=== PATIENT | female | born 1995 | race Caucasian/White ===

== ENCOUNTER 2016-11-02 18:47 | Emergency (ER) | payer BC ==
[~2016-11-02] VITALS: Ht 154.9 cm; Wt 55.8 kg
[~2016-11-02 18:47] MED LIST: BCPILLS PO; LACTCAP3 PO; MULT-506 PO
[2016-11-02 18:48] VITALS: BP 146/96; TEMP 37; Ht 154.9 cm; Wt 55.8 kg
[2016-11-02] MEDS ORDERED: ACETAMINOPHEN 500 MG TAB PO STA (19:09)
[2016-11-02] MEDS ORDERED: ONDANSETRON 4MG OD TAB PO ONE (19:15)
[2016-11-02] MEDS ORDERED: ONDANSETRON HOME PACK 4MG OD TAB PO ONE (19:30)
[2016-11-02 19:58] VITALS: PULSE 94; O2SAT 96
--- NOTE | 2016-11-02 20:44 | EMERGENCY ROOM VISIT NOTE ---
History Report prepared by [place]: Windy Herrera Under the Supervision of: Dr. Solo Lu M.D. First contact with patient: 19:06 Chief Complaint: HEAD INJURY (MINOR) Stated Complaint: HEADACHE, NAUSEA History of Present Illness The patient is a 20 year old female who presents to the Emergency Room with complaints of a head injury that occurred 4 days ago. The patient states that she was drinking alcohol 4 days ago and had a fall around 2300. She hit her head but did not lose consciousness. She had a minor abrasion to the left side of her head but denies any open wounds. The patient drank alcohol the following day, two days ago, and yesterday and did not notice any symptoms. Today, the patient was trying to do school work and had a constant headache. It is dull and a 4/10 in severity. She also complains of mild fuzzy vision, neck pain and nausea. She does not have a history of concussions or head injuries. She has not taken anything for her symptoms. Pt denies LOC, chest pain, breathing difficulties, vomiting, abdominal pain, back pain, extremity pain, numbness, weakness, open wounds, active bleeding, or other complaints. Source of History: patient Onset: 3 days ago Position: head Symptom Intensity: 4/10 Quality: dull Timing: constant Associated Symptoms: + nausea, + neck pain Review of Systems See HPI for pertinent positives and negatives. A total of ten systems were reviewed and were otherwise negative. Past Medical & Surgical Medical Problems: (1) Hemorrhagic cystitis (2) Pyelonephritis (3) UTI (urinary tract infection) Family History Gallbladder disease Hypertension Kidney disease Kidney stones Social History Smoking Status: Never Smoker Alcohol Use: occasionally Marital Status: single Housing Status: lives with roommate Occupation Status: [employer] student Current/Historical Medications No Active Prescriptions or Reported Meds Allergies Coded Allergies: No Known Allergies (Unverified , 05/16/15) Physical Exam Vital Signs Date Time Temp Pulse Resp B/P Pulse Ox O2 Delivery O2 Flow Rate FiO2 11/02/16 19:58 94 18 96 Room Air 11/02/16 18:48 37.0 103 18 146/96 96 Room Air Physical Exam GENERAL: Awake, alert, well appearing, no distress HENT: Normocephalic, atraumatic. TM's normal. Oropharynx unremarkable. EYES: PERRL. EOMI. Normal conjunctiva. Sclera non-icteric. NECK: Supple. No nuchal rigidity. FROM. No JVD or bruit. RESPIRATORY: CTA CARDIAC: RRR. No murmur. ABDOMEN: Soft, non distended. No tenderness to palpation. No rebound or guarding. No masses. RECTAL: Deferred. MUSCULOSKELETAL: Unremarkable. No edema. No discoloration. Gross motor strength symmetric. NEURO: Cranial nerves 2-12 grossly intact. Normal sensorium. No sensory or motor deficits noted. Speech normal. No pronator drift. Negative rhomberg. SKIN: No rash or jaundice noted. LYMPH: No adenopathy. Medical Decision & Procedures Medications Administered Medications (Trade) Dose Ordered Sig/Teresita Route Start Time Stop Time Status Last Admin Dose Admin Ondansetron HCl (Zofran Odt) 4 mg ONE ONCE PO 11/02/16 19:15 11/02/16 19:16 DC 11/02/16 19:55 4 MG Acetaminophen (Tylenol Tab) 1,000 mg NOW STAT PO 11/02/16 19:09 11/02/16 19:11 DC 11/02/16 19:55 1,000 MG Ondansetron HCl (ZOFRAN ODT 4MG Home Pack) 1 homepack UD ONCE PO 11/02/16 19:30 11/02/16 19:31 DC 11/02/16 19:55 1 HOMEPACK ED Course 1905: The patient was evaluated in room D9. A complete history and physical exam was performed. 1908: Ordered Tylenol Tab 1000 mg PO. 1914: Ordered Zofran Odt 4 mg PO. 1919: Discussed results and discharge instructions: She verbalized understanding and agreement. The patient is ready for discharge. 1929: Ordered Ondansetron HCl 1 homepack PO. Medical Decision Triage Nursing notes reviewed and agree them. The patient's history was concerning for traumatic head injury Differential diagnosis: Etiologies such as contusion, fracture, subdural hematoma, concussion, epidural hematoma, intraparenchymal hemorrhage, as well as other traumatic pathologies were entertained. Physical examination findings: As above. ER treatment provided: P.o. Tylenol Zofran ODT 4 mg On reassessment the patient felt better. Diagnostics interpreted by me: Imaging studies: Deferred It appears the patient has a mild concussion. She is 4 days out from the injury. She also had several days of alcohol use. Clinically she looked well. No meningismus. No significant trauma. No neurologic findings. I discussed the risks and the benefits of CT scanning. Clinically the patient is doing well and does not appear to have a significant underlying injury. The patient felt comfortable with conservative observation with the understanding if the clinical picture change that imaging may be necessary at a later time. By the evaluation outlined above emergent etiologies such as fracture, subdural hematoma, epidural hematoma, intraparenchymal hemorrhage, as well as others were deemed relatively unlikely. The patient was informed about the findings as listed above. All questions were answered and she was pleased with the treatment. Return instructions were outlined and the patient was discharged in stable condition. Referral: The patient was referred back to her primary care physician for follow-up this week for a recheck of the current condition. The chart was completed utilizing [employer] Speech voice recognition software. Grammatical errors, random word insertions, pronoun errors, and incomplete sentences are an occasional consequence of this system due to software limitations, ambient noise, and hardware issues. Any formal questions or concerns about the content, text, or information contained within the body of this dictation should be directly addressed to the physician for clarification. Impression Primary Impression: Closed head injury Additional Impression: Concussion Scribe Attestation The scribe's documentation has been prepared under my direction and personally reviewed by me in its entirety. I confirm that the note above accurately reflects all work, treatment, procedures, and medical decision making performed by me. Departure Information Dispostion Home / Self-Care Prescriptions No Active Prescriptions or Reported Meds Referrals No Doctor, Assigned (PCP) Patient Instructions My [facility] Additional Instructions CONCUSSION DISCHARGE INSTRUCTIONS: What is a concussion? A concussion is a disturbance in the function of the brain caused by a direct or indirect force to the head. It results in a variety of symptoms like: headache, balance problems, nausea, vomiting, vision problems, hearing problems/ringing, drowsiness, irritability, and/or difficulty concentrating or remembering. A concussion may, or may not involve memory problems or loss of consciousness. Concussion instructions: Stop and stay away from ALL physical activity until you are symptom free from: Headaches Balance problems Feeling "dinged" Poor concentration Drowsy Fatigued Rest and avoid strenuous activities for the next few days. Get 8-10 hours of sleep per night. Limit activities that involve significant concentration and attention during this time to speed your recovery. This includes studying, attending school, playing video games, and heavy reading. Your brain needs to rest. Eat right and eat often. Now is the time to feed your brain. Well balanced diets that avoid high sugar foods, sodas, caffeine, etc. are better for your brain. NO ALCOHOL OR DRUGS! Avoid stimulants like caffeine, red bull, mountain dew, "energy" drinks, etc. Tylenol(acetaminophen) may be used for headaches. Use 1000mg every six hours as needed. Avoid using more than 4000mg in a 24 hour period. Avoid anti-inflammatories such as aspirin, ibuprofen, Alleve, naprosyn, Motrin, or Advil as these can interfere with blood clotting and lead to bleeding within the brain after a traumatic injury. Zofran 4 mg oral dissolving tablets: take one tablet and allow it to melt in your mouth every 4 hours as needed for nausea. Stepwise return to sports for athletes or working out: You may progress to the next step after 24 hours if you are symptom free. If you experience symptoms, you must return to the previous stage and try again after another 24 hours of rest and being symptom free. Best case scenario is full contact game play in 7 days from the time of injury. Remember repeat concussions are worse than the first. Time invested in recovery will allow for better performance and less downtime in the future. If you have any questions see your dolphin trainer or make an appointment to see one of the team physicians. 1) No activity, complete rest for 3 days. Once all symptoms have resolved, report to the team physician or dolphin trainer to be cleared to progress to step 2. 2) Start light aerobic exercise, such as walking or stationary cycling, no resistance training permitted.(Day 4) 3) Sport specific exercises. Add light resistance slowly. Go slow to allow your body to readapt. (Day 5) 4) Non-contact full speed practice. (Day 6) 5) Full contact practice and/or game play.(Day 7) FOLLOW UP INSTRUCTIONS: You should have a follow up with your family doctor or team physician in 3-5 days regarding your injury. If you had X-rays or CT scanning performed, our Radiologists will review the studies. If important additional findings are discovered you will be notified within 24-48 hours. POST CONCUSSIVE SYNDROME: Occasionally patients can experience a postconcussive syndrome which includes prolonged headaches and memory difficulties. This may occur over the next several days, weeks or rarely, even months. It is important to have a primary care physician follow-up in order to help if the situation develops. Problems could arise over the next 24 to 48 hours. You should not be left alone and MUST go to the hospital immediately if you: -Have a headache that suddenly gets worse. -Are very drowsy or cannot be woken up from sleep. -Can't recognize people or places. -Have repeated vomiting. -Behave unusually, seemed confused, or start acting irritable. -Have a seizure (arms and legs start jerking uncontrollably). -Have weak or numb arms or legs. -Are unsteady on your feet -Experience slurred speech or difficulty speaking. Problem Qualifiers
== END 2016-11-02 19:58 | disposition home or self-care (01) ==
LOC: C.EDB 18:49 → C.EDD 19:58
DX: S06.0X0A Concussion without loss of consciousness, initial encounter (principal); W19.XXXA Unspecified fall, initial encounter; Z87.440 Personal history of urinary (tract) infections; Z83.79 Family history of other diseases of the digestive system; Z82.49 Family history of ischemic heart disease and other diseases of the circulatory system; Z84.1 Family history of disorders of kidney and ureter